=== PATIENT | male | born 2000 | race Hispanic/Latino ===

== ENCOUNTER 2019-10-09 15:09 | Emergency (ER) | payer OTHER ==
[~2019-10-09] VITALS: Ht 167.6 cm; Wt 80.7 kg
--- NOTE | 2019-10-09 15:43 | REP ---
Right hand four views : There is no fracture or dislocation. Mineralization and joint spaces are normal. There are no calcifications or foreign bodies. Impression: Negative right hand . Electronically Signed by Devendra Khan MD 10/09/2019 03:35 P
[2019-10-09] MEDS ORDERED: NAPR-837 PO (16:44)
[2019-10-09] MEDS ORDERED: CYCL10TA PO (16:44)
[2019-10-09] MEDS ORDERED: NEOSPORIN TOP OINT 15GM TOP ONE (16:45)
[2019-10-09] MEDS ORDERED: CYCLOBENZAPRINE 10 MG TAB PO ONE (16:45)
[2019-10-09] MEDS ORDERED: KETOROLAC 60 MG/2 ML VIAL (J1885) IM ONE (16:45)
[2019-10-09 16:58] VITALS: BP 150/73
== END 2019-10-09 17:00 | disposition home or self-care (01) ==
LOC: M ED 15:09
DX: S60.511A Abrasion of right hand, initial encounter (principal); M54.5 Low back pain; V49.40XA Driver injured in collision with unspecified motor vehicles in traffic accident, initial encounter
CPT/HCPCS: 73130; 96372; 99284; J1885